=== PATIENT | male | born 1975 | race Caucasian/White ===

== ENCOUNTER 2021-10-02 10:44 | Inpatient (IN) | payer BC ==
[~2021-10-02] VITALS: Ht 175.3 cm; Wt 77.2 kg
[2021-10-02 11:15] LABS: HEMATOCRIT 41.1 % (42.0-52.0); HEMOGLOBIN 13.5 g/dl (13.5-18.0); MEAN CELL VOLUME 96 fl (80.0-100.0); MEAN CORPUSCULAR HEMOGLOBIN 32 pg (27-31); MEAN CORPUSCULAR HGB CONC 33 g/dl (33.0-37.0); MEAN PLATELET VOLUME 10.6 fl (7.4-10.4); PLATELET COUNT 397 K/mm3 (130-400); RED BLOOD COUNT 4.29 M/mm3 (4.20-5.60); REDCELL DISTRIBUTION WIDTH-CV 11.8 % (11.5-14.5)
[2021-10-02 11:29] LABS: BAND 8 % (0-10); LYMPHOCYTE 5 % (20.0-51.0); NEUTROPHILS 82 % (42.0-75.2)
[2021-10-02 11:30] LABS: PLATELET ESTIMATE NORMAL (NORMAL)
[2021-10-02 12:04] LABS: ALBUMIN 3.4 gm/dL (3.5-5.0); BILIRUBIN,TOTAL 2.8 mg/dL (0.2-1.2); CREATININE, serum 0.74 mg/dL (0.72-1.25); POTASSIUM 4.4 mmol/L (3.5-4.5); TOTAL PROTEIN 8.6 gm/dL (6.2-8.1)
[2021-10-02] MEDS ORDERED: PRILOSEC10 MG PO (14:10)
--- NOTE | 2021-10-02 14:50 | NUR ---
pt arrived to floor via cart, Dr. BECERRIL NOTIFIED
[2021-10-02 15:00] VITALS: BP 178/111; PULSE 114; TEMP 98.5
[2021-10-02] MEDS ORDERED: TYLENOL 325MG325 MG PO (18:01)
[2021-10-02] MEDS ORDERED: MOTRIN 200200 MG/TAB PO (18:03)
[2021-10-02 19:22] VITALS: BP 134/82; PULSE 105; TEMP 98.7
[2021-10-03] VITALS (12 sets, daily range): BP systolic 111–157; BP diastolic 54–97; PULSE 60–115; TEMP 98.4–100.4
[2021-10-03 06:22] LABS: BASO # 0.1 K/mm3 (0.0-0.2); BASO % 0.3 % (0.0-2.0); EOS # 0.1 K/mm3 (0.0-0.7); EOS % 0.3 % (0.0-4.0); GRAN # 15.4 K/mm3 (1.4-6.5); GRAN % 86.5 % (42.2-75.2); LYMPH # 1.2 K/mm3 (1.2-3.4); LYMPH % 6.8 % (20.0-51.0); MEAN CELL VOLUME 96 fl (80.0-100.0); MEAN CORPUSCULAR HGB CONC 32 g/dl (33.0-37.0); MEAN PLATELET VOLUME 10.1 fl (7.4-10.4); MONO % 5.7 % (1.7-9.3); PLATELET COUNT 338 K/mm3 (130-400); RED BLOOD COUNT 3.58 M/mm3 (4.20-5.60); REDCELL DISTRIBUTION WIDTH-CV 11.8 % (11.5-14.5)
--- NOTE | 2021-10-03 06:25 | NUR ---
pt NPO for ERCP today, IVF infusing per PIV @125cc/hr, pain controlled with po norco, no IV pain meds required tonight. pt up to restroom ad carolyn, voiding. pt's spouse updated per phone last evening with his permission.
[2021-10-03 06:33] LABS: HEMATOCRIT 34.3 % (42.0-52.0); MEAN CORPUSCULAR HEMOGLOBIN 31 pg (27-31)
[2021-10-03 06:35] LABS: HEMOGLOBIN 11.1 g/dl (13.5-18.0)
--- NOTE | 2021-10-03 09:41 | NUR ---
JAIR met with the patient and his , Edilma (ph#[phone]), to discuss discharge plan. The patient lives in [place] with Edilma and his [id number] daughter. He reports independence with ADLs and does not have any DME. The patient states that he is suppose to be set up with Dr. Harkins at [facility], but he sees the [facility] or different providers there more often. He receives his medications from [facility]. The patient does not have a DPOA-HC and he was not interested in completing one at this time. The patient plans to return home with his family upon discharge. No additional needs at this time. *Discharge plan: home with family*
--- NOTE | 2021-10-03 10:13 | NUR ---
Initial visit; Patient and his significant other thanked [employer] for looking in on him and offering encouragement, God's blessings and to keep him in her prayers. [employer] will follow up.
--- NOTE | 2021-10-03 11:00 | NUR ---
PATIENT ALERT AND ORIENTED X4. VSS. PATIENT COMPLAINS OF PAIN 10/05. PATIENT REQUESTS PAIN MEDICATION. IV TO LEFT FA WITH NS RUNNING AT 125/HOUR. ASSESSMENT PERFORMED. AM MEDS ADMINISTERED. PATIENT NPO FOR ERCP AT 1215. CONSENT SIGNED. PATIENT ON ROOM AIR, SPO2 AT 92% PATIENT RESTING IN BED WITH CALL LIGHT NEAR.
--- NOTE | 2021-10-03 12:17 | NUR ---
patient off of floor for surgery
[2021-10-04] VITALS (7 sets, daily range): BP systolic 134–155; BP diastolic 87–95; PULSE 99–113; TEMP 98.7–100.2
--- NOTE | 2021-10-04 06:16 | NUR ---
pain controlled with po pain meds, IVF infusing per piv @125 cc/hr, pt taking po well, up ad carolyn to restroom. pt preferred to keep O2 on @2L for comfort while sleeping. tylenol given for low grade temp x2, colace started per pt request.
[2021-10-04 06:23] LABS: BASO % 0.2 % (0.0-2.0); EOS % 0.2 % (0.0-4.0); GRAN % 86.2 % (42.2-75.2); HEMOGLOBIN 10.7 g/dl (13.5-18.0); LYMPH # 1.2 K/mm3 (1.2-3.4); LYMPH % 6.3 % (20.0-51.0); MEAN CELL VOLUME 95 fl (80.0-100.0); MEAN CORPUSCULAR HEMOGLOBIN 31 pg (27-31); MEAN CORPUSCULAR HGB CONC 33 g/dl (33.0-37.0); MEAN PLATELET VOLUME 9.7 fl (7.4-10.4); MONO # 1.2 K/mm3 (0.1-0.6); MONO % 6.5 % (1.7-9.3); PLATELET COUNT 341 K/mm3 (130-400); RED BLOOD COUNT 3.42 M/mm3 (4.20-5.60); REDCELL DISTRIBUTION WIDTH-CV 11.6 % (11.5-14.5)
[2021-10-04 06:39] LABS: ALBUMIN 2.2 gm/dL (3.5-5.0); BILIRUBIN,TOTAL 1.3 mg/dL (0.2-1.2); CALCIUM 8.7 mg/dL (8.4-10.2); CREATININE, serum 0.64 mg/dL (0.72-1.25); TOTAL PROTEIN 6.4 gm/dL (6.2-8.1)
[2021-10-04 06:42] LABS: HEMATOCRIT 32.6 % (42.0-52.0)
--- NOTE | 2021-10-04 12:46 | NUR ---
PATIENT ALERT AND ORIENTED X4. PATIENT HERE FOR S/P YINA AND ERCP. PATIENT REPORTS PAIN 7/10 AND PAIN IS NOT MANAGEABLE DESPITE Q4 NORCO. PATIENT IS TACHY AND AFEBRILE, RAN A LOW GRADE TEMP OVERNIGHT. PATIENT ON 1L PER NC. PATIENT GOING DOWN FOR CT OF ABDOMEN TO R/O ABSCESS. NS RUNNING AT 125ML/HOUR IN LEFT FOREARM. CALL LIGHT WITHIN REACH.
[2021-10-05] VITALS (14 sets, daily range): BP systolic 143–168; BP diastolic 88–99; PULSE 101–113; TEMP 98.5–102.3
--- NOTE | 2021-10-05 05:43 | NUR ---
PT requesting norco q4 hrs, no IV pain meds required. IVF infusing per piv @75cc/hr, NPO @midnight. up to restroom ad carolyn. 2L O2 per NC per pt request for shallow respirations d/t pain.
[2021-10-05 06:41] LABS: HEMOGLOBIN 10.5 g/dl (13.5-18.0); MEAN CELL VOLUME 94 fl (80.0-100.0); MEAN CORPUSCULAR HEMOGLOBIN 31 pg (27-31); MEAN CORPUSCULAR HGB CONC 33 g/dl (33.0-37.0); MEAN PLATELET VOLUME 10.1 fl (7.4-10.4); PLATELET COUNT 426 K/mm3 (130-400); RED BLOOD COUNT 3.42 M/mm3 (4.20-5.60); REDCELL DISTRIBUTION WIDTH-CV 11.6 % (11.5-14.5)
--- NOTE | 2021-10-05 10:15 | NUR ---
PT WAS TAKEN UPSTAIRS TO ROOM 331 AND ASSISTED INTO BED. PRESENT. ACCORDION DRAIN IS CLIPPED UNDER THE GOWN AND PT IS AWARE. REPORT TO [facility]. SPECIMEN TAKEN DOWN TO LAB.
--- NOTE | 2021-10-05 19:15 | NUR ---
PT RESTING IN BED. COMPLAINING HE HAS HAD NO PAIN RELIEF IN 5 DAYS. SEE MAR FOR REPEAT NORCO. ACCORDIAN DRAIN IN PLACE. REDDISH DRAINAGE IN TUBING. PT HAS O2 AT 2L. RESP SHALLOW. ENC PT TO COUGH AND DEEP BREATH WITH USING PILLOW TO ABD. PT REPORTS THIS HURTS. CALL LIGHT IN REACH.
--- NOTE | 2021-10-05 21:35 | NUR ---
PT REPORTED NOT GETTING PAIN RELIEF. PAIN LEVEL NOW8/10. PT CAME FROM [facility] A FEW MINUTES AGO. PT ASKING FOR MORE PAIN MED. SEE MAR FOR DILAUDID IV GIVEN FOR UNRELEIVED PAIN. CALL LIGHT IN REACH.
--- NOTE | 2021-10-05 22:11 | NUR ---
PT AWAKE. WATCHING TV. PT REPORTS PAIN LEVEL IS 4-5.
[2021-10-06] VITALS (7 sets, daily range): BP systolic 138–157; BP diastolic 70–98; PULSE 97–112; TEMP 98–99.4
--- NOTE | 2021-10-06 00:08 | NUR ---
RECHECKED ORAL TEMP 99.4.
--- NOTE | 2021-10-06 00:48 | NUR ---
NO DRAINAGE IN ACCORDIAN BAG.
--- NOTE | 2021-10-06 03:45 | NUR ---
PT RESTING IN RELAXED POSITION. PT REPORTS ABD PAIN LEVEL 6/10. SEE MAR FOR NORCO GIVEN. RESET ACCORDIAN DRAIN. HAS VERY SMALL SMEAR IN BAG.
--- NOTE | 2021-10-06 05:41 | NUR ---
PT SLEEPING. NO DRAINAGE FROM ACCORDIAN DRAIN. RESET DRAIN.
[2021-10-06 06:17] LABS: HEMOGLOBIN 10.5 g/dl (13.5-18.0); MEAN CELL VOLUME 92 fl (80.0-100.0); MEAN CORPUSCULAR HEMOGLOBIN 30 pg (27-31); MEAN CORPUSCULAR HGB CONC 33 g/dl (33.0-37.0); MEAN PLATELET VOLUME 9.7 fl (7.4-10.4); PLATELET COUNT 480 K/mm3 (130-400); RED BLOOD COUNT 3.45 M/mm3 (4.20-5.60); REDCELL DISTRIBUTION WIDTH-CV 11.7 % (11.5-14.5)
[2021-10-06 06:19] LABS: HEMATOCRIT 31.6 % (42.0-52.0)
--- NOTE | 2021-10-06 09:52 | NUR ---
CALLED DR BECERRIL, [employer]ANT ASWERED JONE IS CURRENTLY DOING A SX. INFORMED HER THAT PATIENT IS STATING PAIN MEDS ARE NOT HELPING AND HE NEEDS SOMETHING "BETTER." IS ALSO GETTING AGITATED WITH ME REGARDING PAIN CONTROL.
--- NOTE | 2021-10-06 10:40 | NUR ---
The patient continues to have problems with pain control. No needs from at this time.
[2021-10-07 03:02] VITALS: BP 135/88; PULSE 65; PULSE 83; TEMP 98.8
[2021-10-07 06:18] LABS: MEAN CELL VOLUME 93 fl (80.0-100.0); MEAN CORPUSCULAR HEMOGLOBIN 31 pg (27-31); MEAN CORPUSCULAR HGB CONC 33 g/dl (33.0-37.0); MEAN PLATELET VOLUME 9.8 fl (7.4-10.4); PLATELET COUNT 520 K/mm3 (130-400); RED BLOOD COUNT 3.56 M/mm3 (4.20-5.60); REDCELL DISTRIBUTION WIDTH-CV 11.6 % (11.5-14.5)
--- NOTE | 2021-10-07 07:30 | NUR ---
Pt. sitting up in bed. Pt. is A&OX3, assessment complete. INT to lt. forearm patent. Pt. reports pain at a 5 on pain scale, gave pain meds per orders. Pt. denies further needs, call light within reach.
[2021-10-07 07:42] VITALS: BP 150/93; PULSE 95; TEMP 97.5
[2021-10-07 12:47] VITALS: BP 156/77; PULSE 92; TEMP 98.7
[2021-10-07 16:23] VITALS: BP 150/85; PULSE 108; TEMP 98.8
[2021-10-07] MEDS ORDERED: AMOXICILLIN 8751 TAB PO (17:03)
[2021-10-07] MEDS ORDERED: PERCOCET 325 MG1 TA2 PO (17:04)
--- NOTE | 2021-10-07 17:30 | NUR ---
Pt. has med discharge criteria. INT to lt. forearm removed. Pt. given education on new scripts, dx, and diet. Pt. denies questions. Informed pt. of scripts sent to pharm. Pt. denies further needs. Escorted pt. out with family member.
== END 2021-10-07 17:32 | disposition home or self-care (01) | DRG 872 ==
LOC: COL.ER 10:44 → SURG 13:40
PROVIDERS: Internal Medicine Gastroenterology; Physician Assistant; ADMIT Surgery
PROC: BF101ZZ Fluoroscopy of Bile Ducts using Low Osmolar Contrast (ICD-10-PCS; 2021-10-03)
PROC: 0F798ZZ Dilation of Common Bile Duct, Via Natural or Artificial Opening Endoscopic (ICD-10-PCS; 2021-10-03)
PROC: 0FC98ZZ Extirpation of Matter from Common Bile Duct, Via Natural or Artificial Opening Endoscopic (ICD-10-PCS; principal; 2021-10-03 12:15)
PROC: 0F9430Z Drainage of Gallbladder with Drainage Device, Percutaneous Approach (ICD-10-PCS; 2021-10-05)
DX: A41.9 Sepsis, unspecified organism (principal); K80.43 Calculus of bile duct with acute cholecystitis with obstruction; I10 Essential (primary) hypertension; F17.210 Nicotine dependence, cigarettes, uncomplicated; Z20.822 Contact with and (suspected) exposure to COVID-19; D72.829 Elevated white blood cell count, unspecified; K21.9 Gastro-esophageal reflux disease without esophagitis; G89.29 Other chronic pain; B96.20 Unspecified Escherichia coli [E. coli] as the cause of diseases classified elsewhere; Z72.89 Other problems related to lifestyle; Z90.49 Acquired absence of other specified parts of digestive tract
CPT/HCPCS: OP; C1729; C1769; G0378; J0295; J1170; J2250; J2543; J2550; J2704; J3010; J3370; J7030; J7050; Q9967